=== PATIENT | female | born 1990 | race Caucasian/White ===

== ENCOUNTER 2016-07-08 12:29 | Emergency (ER) | payer OTHER ==
[~2016-07-08] VITALS: Ht 167.6 cm; Wt 53.5 kg
[2016-07-08] MEDS ORDERED: BIRTH CONTROL PO (12:39)
[2016-07-08] MEDS ORDERED: LIDOCAINE HCL 1% 20 ML VIAL IJ ONE (13:15)
[2016-07-08] MEDS ORDERED: TDAP DIPH,PERTUSS,TET VAC/PF 0.5 ML DISP.SYRIN IM ONE ×2 (13:15→13:29)
[2016-07-08] MEDS ORDERED: NEOMY/BACITRA/POLYMYXIN B OINT UD PACKET TP ONE ×2 (13:19→13:30)
--- NOTE | 2016-07-08 13:29 | NUR ---
Pt dc;ed home w/ aci.
[2016-07-08 13:31] VITALS: BP 128/74
== END 2016-07-08 13:32 | disposition home or self-care (01) ==
LOC: ER 12:29
DX: S61.012A Laceration without foreign body of left thumb without damage to nail, initial encounter (principal); Z88.0 Allergy status to penicillin; X58.XXXA Exposure to other specified factors, initial encounter; Y93.89 Activity, other specified; Y99.8 Other external cause status; Y92.89 Other specified places as the place of occurrence of the external cause
CPT/HCPCS: 90715; A4217; A4663; J3490

== ENCOUNTER 2016-07-10 15:35 | Emergency (ER) | payer OTHER ==
[~2016-07-10] VITALS: Ht 167.6 cm; Wt 52.2 kg
[~2016-07-10 15:35] MED LIST: BIRTH CONTROL PO
--- NOTE | 2016-07-10 16:00 | NUR ---
Patient discharged to home in stable conditon. Written and verbal after care instructions given. Patient verbalizes understanding of instructions.
== END 2016-07-10 16:07 | disposition home or self-care (01) ==
LOC: ER 16:05
DX: S61.412D Laceration without foreign body of left hand, subsequent encounter (principal); Z88.0 Allergy status to penicillin; X58.XXXD Exposure to other specified factors, subsequent encounter; Y99.8 Other external cause status; Y92.89 Other specified places as the place of occurrence of the external cause
CPT/HCPCS: 99283; A4663

== ENCOUNTER 2016-07-19 13:45 | Emergency (ER) | payer OTHER ==
[~2016-07-19] VITALS: Ht 167.6 cm; Wt 52.2 kg
--- NOTE | 2016-07-19 14:14 | NUR ---
sutures removed by rn Hugh jackson education and care provided patient verbalized understanding.
--- NOTE | 2016-07-19 14:18 | NUR ---
at bedside examining patient's hand post stitch removal pending one.
--- NOTE | 2016-07-19 14:46 | NUR ---
MSE COMPLETED, SUTURES REMED PER MD, STERI-STIPS PLACED, PT THEN D/C'D HOME, ACI GIVEN. PT AMBULATED W/O DIFF/TOOK ALL BELONGINGS.
[2016-07-19 14:51] VITALS: BP 101/62
== END 2016-07-19 14:52 | disposition home or self-care (01) ==
LOC: ER 13:45
DX: S61.411D Laceration without foreign body of right hand, subsequent encounter (principal); Z88.0 Allergy status to penicillin; X58.XXXD Exposure to other specified factors, subsequent encounter; Y99.8 Other external cause status; Y92.89 Other specified places as the place of occurrence of the external cause
CPT/HCPCS: 99281; A4663